=== PATIENT | male | born 1955 | race Caucasian/White ===

== ENCOUNTER 2016-07-07 12:43 | Emergency (ER) | payer SELFPAY ==
[2016-07-07 12:55] VITALS: RESP 18
[2016-07-07] MEDS ORDERED: CEPHALEXIN 500 MG CAP PO ONE (13:27)
[2016-07-07] MEDS ORDERED: SULFAMETHOX/TMP 800/160 MG 1 TAB PO ONE (13:27)
--- NOTE | 2016-07-07 13:30 | EDPHY ---
H & P Stated Complaint: infected cyst r thigh Time Seen by Provider: 07/07/16 13:11 HPI/ROS: Chief complaint: Infected skin tag in right groin History of present illness: This is a 61-year-old male who presents to the emergency department concerned he has developed an infection to a skin tag that is on the right side of his groin. Patient reports the onset of symptoms over the last few days. Symptoms have worsened. He reports pain. He reports swelling. He denies other associated signs or symptoms including no fevers. There is no involvement of the scrotum or penis or inguinal region. Normal bowel movements. Urinating well. - Personal History Current Tetanus/Diphtheria Vaccine: Yes - Medical/Surgical History Hx Asthma: No Hx Chronic Respiratory Disease: No Hx Diabetes: No Hx Cardiac Disease: No Hx Renal Disease: No Hx Cirrhosis: No Hx Alcoholism: No Hx HIV/AIDS: No Hx Splenectomy or Spleen Trauma: No Other PMH: denies - Social History Smoking Status: Never smoked - Physical Exam Exam: General: Alert, nontoxic Skin: There is a skin tag in the right groin, it is erythematous. The area is mildly tender to palpation. There is underlying edema that is fluctuant to palpation approximately 1 cm in diameter. Minimal surrounding erythema. No lesions to the rest of the groin including over the perineal region, scrotum or penis or around the anus. Constitutional: Initial Vital Signs Temperature (C) 36.6 C 07/07/16 12:52 Heart Rate 67 07/07/16 12:52 Respiratory Rate 18 07/07/16 12:52 Blood Pressure 108/70 07/07/16 12:52 O2 Sat (%) 96 07/07/16 12:52 O2 Delivery Mode Room Air Allergies/Adverse Reactions: No Known Allergies Allergy (Unverified 07/07/16 12:51) Home Medications: Medication Instructions Recorded Cephalexin [Keflex (*)] 500 mg PO QID 7 Days 07/07/16 Sulfamethox/Tmp 800/160 mg 1 tab PO BID #14 tab 07/07/16 [Bactrim Ds] oxyCODONE/APAP 5/325 [Percocet 1 tab PO Q6H #10 tab 07/07/16 5/325 (*)] Medical Decision Making Procedures: Procedure: Abscess drainage. The patient's abscess was located in the right groin. I obtained verbal consent from the patient to drain the abscess who was informed about the possibility of bleeding and pain. The abscess was incised with a scalpel and a small amount of purulent drainage was expressed. The patient tolerated the procedure well. The procedure was performed by myself. ED Course/Re-evaluation: Patient was discussed with my secondary supervising physician Dr. Aric Noland. Patient presents to the emergency department concerned he has an infection in the groin. He does appear to have an inflamed skin tag with an underlying very small abscess that has been incised and drained with minimal surrounding cellulitis. He is nontoxic. Wound culture has been obtained. He is started on dual antibiotic therapy with Bactrim and Keflex. My suspicion for serious pathology such as Irene's gangrene is low. Patient is discharged home. Home care is discussed. He is asked to follow up with his primary care doctor for recheck. Strict return precautions are given. Patient voiced understanding and agreement with plan. Differential Diagnosis: Included but not limited to cellulitis, abscess, unlikely irene gangrene - Data Points Medications Given: Discontinued Medications Cephalexin HCl (Keflex) 500 mg PO EDNOW ONE PRN Reason: Protocol Stop: 07/07/16 13:28 Last Admin: 07/07/16 13:47 Dose: 500 mg Trimethoprim/Sulfamethoxazole (Bactrim Ds) 1 ea PO EDNOW ONE PRN Reason: Protocol Stop: 07/07/16 13:28 Last Admin: 07/07/16 13:48 Dose: 1 ea Departure - Departure Disposition: Home, Routine, Self-Care Clinical Impression: Abscess Condition: Good Instructions: Abscess (ED) Additional Instructions: Follow-up with her primary care doctor for recheck In regards to pain control see the following: Use ibuprofen [600] mg [3] times a day for the next 2-3 days for pain In addition You have been prescribed Percocet for pain. Percocet contains Tylenol, do not take extra Tylenol/acetaminophen/Apap with it. It is sedating. Apply warm compresses to the region multiple times daily as discussed Take all antibiotics as prescribed until finished even feeling better If symptoms worsen or new symptoms develop return to the emergency room for recheck Referrals: Kishore Pinon MD [Primary Care Provider] - As per Instructions Prescriptions: Cephalexin [Keflex (*)] 500 mg PO QID 7 Days oxyCODONE/APAP 5/325 [Percocet 5/325 (*)] 1 tab PO Q6H #10 tab Sulfamethox/Tmp 800/160 mg [Bactrim Ds] 1 tab PO BID #14 tab
[2016-07-07 14:07] VITALS: BP 111/67; PULSE 57; TEMP 98.2; O2SAT 93
== END 2016-07-07 14:07 | disposition home or self-care (01) ==
PROC: 0H97XZZ Drainage of Abdomen Skin, External Approach (ICD-10-PCS; principal; 2016-07-07)
DX: L02.214 Cutaneous abscess of groin (principal)